=== PATIENT | female | born 1935 ===

== ENCOUNTER 2022-01-26 09:57 | Outpatient (REF) | payer OTHER, SELFPAY ==
--- NOTE | ~2022-01-26 | CT_ITS ---
EXAMINATION: CT HEAD WITHOUT CONTRAST CLINICAL INFORMATION: Dementia. Behavioral disturbance. COMPARISON: No relevant prior imaging. TECHNIQUE: Contiguous axial imaging was performed from the skull base to vertex without intravenous administration of contrast. This CT examination was performed using dose optimization techniques as appropriate, variously including the following: *Automated exposure control *Adjustment of mA and/or kV according to patient size (this includes techniques or standardized protocols for targeted exams where dose is matched to indication/reason for exam; i.e. extremities or head) *Use of iterative reconstruction technique DLP: 818 mGy-cm FINDINGS: There are numerous foci of hypoattenuation primarily involving the periventricular white matter and there is loss of parenchymal volume primarily within the temporal lobes. Deal-white matter differentiation is grossly preserved and there is no evidence of acute territorial infarct. There is no intracranial mass effect or midline shift. No abnormal extra axial collection. Lateral and third ventricles are prominent. There is relative effacement of the sulcal spaces particularly near the vertex and there is narrowing of the callosal angle, best visualized on coronal image 241 of 402 series 7. The calvarium and skull base are intact. Mastoid air cells and middle ear cavities are well aerated. No active paranasal sinus disease. CT/CT head/brain wo con IMPRESSION: There is loss of parenchymal volume vertebral artery within the anterior temporal lobes. There is chronic small vessel ischemic changes are also visualized primarily involving the periventricular white matter and there are anatomic features that suggest the possibility of normal pressure hydrocephalus. Grossly no evidence of acute territorial infarct or hemorrhage.
== END 2022-01-26 09:58 | disposition home or self-care (01) ==
LOC: HO.CT 09:57
PROVIDERS: Visit Provider Psychiatry & Neurology Neurology
DX: F03.90 Unspecified dementia, unspecified severity, without behavioral disturbance, psychotic disturbance, mood disturbance, and anxiety (principal)
CPT/HCPCS: 70450

== ENCOUNTER → 2022-10-10 11:08 | Outpatient (BNVA) | payer MEDICARE, MEDICAID, SELFPAY | PROVIDERS: PCP Internal Medicine Hematology & Oncology; Visit Provider Psychiatry & Neurology Neurology | DX: F03.90 Unspecified dementia, unspecified severity, without behavioral disturbance, psychotic disturbance, mood disturbance, and anxiety (principal); F32.A Depression, unspecified; R29.6 Repeated falls | CPT/HCPCS: 99212 ==

== ENCOUNTER 2023-05-17 15:33 | Outpatient (AMB) | payer OTHER, SELFPAY ==
--- NOTE | 2023-05-17 15:44 | A.OFFVIS_ITS ---
Intake Vital Signs 05/17/23 15:51 Height 5 ft 1 in Weight 147 lb 2 oz BMI 27.8 BP 142/70 H Blood Pressure Location Lt brachial Position Sitting Respiration 17 Pulse 73 Pulse Source Pulse Oximeter Pulse Oximetry (%) 93 Oxygen Delivery Method Room Air Intake Visit Reasons: 6 mnts f/u appt-lvm Intake Note: Pt presents to the office for a 6 month follow up for Dementia. Pt is here with her son, Moy. He is her historian today. He reports concerns of her memory worsening, unsteady gait and oversleeping between 14-16 hours. This has been going on for several months. Allergies lisinopril Allergy (Intermediate, Verified 05/17/23 15:51) toung swelling chlorthalidone Adverse Reaction (Intermediate, Verified 05/17/23 15:51) Hives tramadol Adverse Reaction (Intermediate, Verified 05/17/23 15:51) cough HPI HPI Comments History of Present Illness Details 87 y/o female comes for follow up of razo. Pt is accompanied by her son. Pt's son reports that her hallucination and paranoid has been better quetiapine 25 mg BID. She sleeps better and her mood is stable. However, she is very forgetful, and can't remember she ate and keep eating snacks and gained wt. She gained 7 lb over the last 7 months. Pt is on donepezil 5 mg and memantine 10 mg BID. She needs assistance with most ADLs. she is walking now with a cane. [facility]LY [facility], [facility] Medical History Anemia Arthritis Cervical spinal stenosis COPD (chronic obstructive pulmonary disease) Depression GERD (gastroesophageal reflux disease) Hiatal hernia HTN (hypertension) Hyperlipidemia Insomnia Lumbar spinal stenosis Osteoporosis Urolithiasis Vitamin B 12 deficiency Surgical History H/O endoscopy H/O total hysterectomy History of appendectomy H/O lithotripsy H/O colonoscopy H/O cataract removal with insertion of prosthetic lens Family History Family/Other HTN (hypertension) Family/Other HTN (hypertension) Father No problems noted. Mother No problems noted. Social History Patient Tobacco Use Status: Former Tobacco user Review of Systems Const All systems reviewed & are unremarkable except as noted in HPI and below Physical Exam Vital Signs: Last Vital Signs Pulse 73 05/17/23 15:51 Resp 17 05/17/23 15:51 BP 142/70 H 05/17/23 15:51 Pulse Ox 93 05/17/23 15:51 Oxygen Delivery Method Room Air 05/17/23 15:51 BMI result Body Mass Index 27.8 Const Orientation/consciousness: oriented to person Eyes Pupils: Equal, round and reactive pupils present Neuro General: oriented to person Cranial nerves: Yes Equal, round and reactive pupils present, Yes Bilaterally i ntact EOM present, Yes Normal facial strength present and Yes Midline tongue present Gait exam (Neuro): Other gait observations present (with cane slow ) Motor exam (neuro): 5/5 motor strength present throughout and Normal motor muscle tone present throughout Coordination: [id number] test normal Assessment & Plan Assessment & Plan (1) Dementia: Code(s): F03.90 - Unspecified dementia, unspecified severity, without behavioral di sturbance, psychotic disturbance, mood disturbance, and anxiety (2) Depression: Code(s): F32.A - Depression, unspecified (3) Multiple falls: Code(s): R29.6 - Repeated falls Plan Continue citalopram 10mg, quetiapine 25 mg BID, memantine 10 mg BID and donepezil 5 mg qHS. Advised patient's son to patient engage more social and cognitive activities. Coding Level of Care Code Est Pt Level 3 (86670) Diagnoses Dementia F03.90 Depression F32.A Multiple falls R29.6
[2023-05-17 15:51] VITALS: BP 142/70; PULSE 73; RESP 17; O2SAT 93; BMI 27.8
== END 2023-05-17 16:16 | disposition home or self-care (01) ==
PROVIDERS: Visit Provider Nurse Practitioner Family
DX: F03.90 Unspecified dementia, unspecified severity, without behavioral disturbance, psychotic disturbance, mood disturbance, and anxiety (principal); F32.A Depression, unspecified; R29.6 Repeated falls
CPT/HCPCS: 99213

== ENCOUNTER → 2023-05-17 15:33 | Outpatient (BNVA) | payer OTHER, SELFPAY | PROVIDERS: Visit Provider Psychiatry & Neurology Neurology | DX: F03.90 Unspecified dementia, unspecified severity, without behavioral disturbance, psychotic disturbance, mood disturbance, and anxiety (principal); F32.A Depression, unspecified; R29.6 Repeated falls | CPT/HCPCS: 99212 ==

== ENCOUNTER 2023-08-28 09:06 | Outpatient (AMB) | payer OTHER, SELFPAY ==
--- NOTE | 2023-08-28 09:07 | A.OFFVIS_ITS ---
Intake Vital Signs 08/28/23 09:09 Height 5 ft 1 in BP 146/72 H Blood Pressure Location Lt brachial Position Sitting Respiration 17 Pulse 69 Pulse Source Pulse Oximeter Pulse Oximetry (%) 96 Oxygen Delivery Method Room Air Intake Visit Reasons: Pt was hospitalized /7 days for crisis outbur Intake Note: Pt presents to the office for hospital follow up. Spool Carrier Required: No Allergies lisinopril Allergy (Intermediate, Verified 08/28/23 09:08) toung swelling chlorthalidone Adverse Reaction (Intermediate, Verified 08/28/23 09:08) Hives tramadol Adverse Reaction (Intermediate, Verified 08/28/23 09:08) cough HPI HPI Comments History of Present Illness Details 87 y/o female comes for follow up of jami mack. Pt is accompanied by her son.ABout 1 month ago she became suicidal( screamed that she did not want to live) , was aggressive towards her daughter .SHe was admitted at [facility] - she was started trazadone 25mg qhs as needed, lexapro 10mg qd. she had psychiatric evaluation and was told it was related to dementia and panic attacks. Her hallucinations are worse . she started going to [facility] 2 times a week However, she is very forgetful, and can't remember she ate and keep eating snacks and gained wt. Pt is on donepezil 5 mg and memantine 10 mg BID. She needs assistance with all ADLs. she is walking now with a cane. [facility] Medical History (Updated 08/28/23 @ 09:28 by Jasmina Duran MD) Dementia, unspecified, with behavioral disturbance Hyperlipidemia Arthritis HTN (hypertension) Osteoporosis Lumbar spinal stenosis GERD (gastroesophageal reflux disease) COPD (chronic obstructive pulmonary disease) Hiatal hernia Urolithiasis Depression Cervical spinal stenosis Vitamin B 12 deficiency Insomnia Anemia Surgical History H/O endoscopy H/O total hysterectomy History of appendectomy H/O lithotripsy H/O colonoscopy H/O cataract removal with insertion of prosthetic lens Family History Family/Other HTN (hypertension) Family/Other HTN (hypertension) Father No problems noted. Mother No problems noted. Social History Patient Tobacco Use Status: Former Tobacco user Physical Exam Vital Signs: Last Vital Signs Pulse 69 08/28/23 09:09 Resp 17 08/28/23 09:09 BP 146/72 H 08/28/23 09:09 Pulse Ox 96 08/28/23 09:09 Oxygen Delivery Method Room Air 08/28/23 09:09 Const Orientation/consciousness: oriented to person Eyes Pupils: Equal, round and reactive pupils present Neuro General: oriented to person Cranial nerves: Yes Equal, round and reactive pupils present, Yes Bilaterally intact EOM present, Yes Normal facial strength present and Yes Midline tongue present Gait exam (Neuro): Other gait observations present (with cane slow ) Motor exam (neuro): 5/5 motor strength present throughout and Normal motor muscle tone present throughout Coordination: [id number] test normal Assessment & Plan Assessment & Plan (1) Dementia, unspecified, with behavioral disturbance: Code(s): F03.918 - Unspecified dementia, unspecified severity, with other behavioral disturbance (2) Depression: Code(s): F32.A - Depression, unspecified (3) Multiple falls: Code(s): R29.6 - Repeated falls Plan Continue escitalopram 10mg, quetiapine 25 mg qhs and 1/2 as needed , memantine 10 mg BID and donepezil 5 mg qHS. Advised patient's son to patient engage more social and cognitive activities. she NEEDS 24 hr care or to be placed in custodial facility due to her dementia associated with behavior and psychotic features. Lorazepam 0.5mg bid as needed for agitation. Medications: New lorazepam 0.5 mg PO BID PRN 60 tabs 0RF anxiety Changed From quetiapine 25 mg PO BID 30 days 60 tabs 3RF agitation To quetiapine 1 tab qhs and 1/2 as needed bid orally 2 times a day; 30 days 60 tabs 3RF agitation Coding Level of Care Code Est Pt Level 4 (85711) Diagnoses Dementia, unspecified, with behavioral disturbance F03.918 Depression F32.A Multiple falls R29.6
[2023-08-28 09:09] VITALS: BP 146/72; PULSE 69; RESP 17; O2SAT 96
== END 2023-08-28 09:38 | disposition home or self-care (01) ==
PROVIDERS: PCP Internal Medicine Hematology & Oncology; Visit Provider Psychiatry & Neurology Neurology
DX: F03.918 Unspecified dementia, unspecified severity, with other behavioral disturbance (principal); F32.A Depression, unspecified; R29.6 Repeated falls
CPT/HCPCS: 99214

== ENCOUNTER → 2023-08-28 09:06 | Outpatient (BNVA) | payer OTHER, SELFPAY | PROVIDERS: PCP Internal Medicine Hematology & Oncology; Visit Provider Psychiatry & Neurology Neurology | DX: F03.918 Unspecified dementia, unspecified severity, with other behavioral disturbance (principal); F32.A Depression, unspecified; R29.6 Repeated falls; Z79.899 Other long term (current) drug therapy | CPT/HCPCS: 99212 ==

== ENCOUNTER 2024-01-30 12:26 | Outpatient (AMB) | payer OTHER, SELFPAY ==
[2024-01-30 12:29] VITALS: BP 120/68; PULSE 68; RESP 16; O2SAT 98; BMI 26.5
--- NOTE | 2024-01-30 12:29 | A.OFFVIS_ITS ---
Vital Signs 01/30/24 12:29 Height 5 ft 1 in Weight 140 lb 6 oz BMI 26.5 BP 120/68 Blood Pressure Location Rt brachial Position Sitting Respiration 16 Pulse 68 Pulse Source Pulse Oximeter Pulse Oximetry (%) 98 Oxygen Delivery Method Room Air Intake Visit Reasons: 6 mo f/u Memory impairment - LVM w/add Intake Note: Pt presents tot he office for a 5 month follow up for dementia. Habilitation Worker Required: No Allergies lisinopril Allergy (Intermediate, Verified 01/30/24 12:29) toung swelling chlorthalidone Adverse Reaction (Intermediate, Verified 01/30/24 12:29) Hives tramadol Adverse Reaction (Intermediate, Verified 01/30/24 12:29) cough Medication List - Last Reconciled 01/30/24 by Jasmina Duran MD acetaminophen ER (Tylenol 8 Hour) 650 mg PO Q12H donepezil 5 mg PO BEDTIME escitalopram oxalate 10 mg PO DAILY 30 days furosemide 20 mg PO DAILY lorazepam 0.5 mg PO BID PRN mecobalamin (vitamin B12) 1,000 mcg PO DAILY memantine 10 mg PO BID 30 days multivitamin (Daily Multi-Vitamin tablet) 1 tab PO DAILY quetiapine 1 tab qhs and 1/2 as needed bid orally 2 times a day; 30 days trazodone 25 mg PO BEDTIME PRN HPI Comments Details: 88 y/o female comes for follow up of dementia. Pt is accompanied by her son.she has been the same since last visit. she had 1 episode of agitation but resolved itself. Her hallucinations are same . she has delusions- still thinks her is alive she refused to go to senior center and is very sleepy during the daytime. However, she is very forgetful, and can't remember she ate and keep eating snacks and gained wt. Pt is on donepezil 5 mg and memantine 10 mg BID. She needs assistance with all ADLs. she is walking now with a cane. [facility] Medical History Dementia, unspecified, with behavioral disturbance Hyperlipidemia Arthritis HTN (hypertension) Osteoporosis Lumbar spinal stenosis GERD (gastroesophageal reflux disease) COPD (chronic obstructive pulmonary disease) Hiatal hernia Urolithiasis Depression Cervical spinal stenosis Vitamin B 12 deficiency Insomnia Anemia Surgical History H/O endoscopy H/O total hysterectomy History of appendectomy H/O lithotripsy H/O colonoscopy H/O cataract removal with insertion of prosthetic lens Family History Family/Other HTN (hypertension) Family/Other HTN (hypertension) Father No problems noted. Mother No problems noted. Social History Patient Tobacco Use Status: Former Tobacco user Physical Exam Vital Signs: Last Vital Signs Pulse 68 01/30/24 12:29 Resp 16 01/30/24 12:29 BP 120/68 01/30/24 12:29 Pulse Ox 98 01/30/24 12:29 Oxygen Delivery Method Room Air 01/30/24 12:29 BMI result Body Mass Index 26.5 Const Orientation/consciousness: oriented to person Eyes Pupils: Equal, round and reactive pupils present Neuro General: oriented to person Cranial nerves: Yes Equal, round and reactive pupils present, Yes Bilaterally intact EOM present, Yes Normal facial strength present and Yes Midline tongue present Gait exam (Neuro): Other gait observations present (with cane slow ) Motor exam (neuro): 5/5 motor strength present throughout and Normal motor muscle tone present throughout Coordination: [id number] test normal Assessment & Plan Assessment & Plan (1) Dementia, unspecified, with behavioral disturbance: Code(s): F03.918 - Unspecified dementia, unspecified severity, with other behavioral disturbance Category: Medical (2) Depression: Code(s): F32.A - Depression, unspecified Category: Medical (3) Multiple falls: Code(s): R29.6 - Repeated falls Category: Medical Plan Continue escitalopram 10mg, quetiapine 25 mg qhs and 1/2 as needed , memantine 10 mg BID and donepezil 5 mg qHS. Advised patient's son to patient engage more social and cognitive activities. she NEEDS 24 hr care or to be placed in fdc facility due to her dementia associated with behavior and psychotic features. Lorazepam 0.5mg bid as needed for agitation. Coding Level of Care Code Est Pt Level 4 (98482) Diagnoses Dementia, unspecified, with behavioral disturbance F03.918 Depression F32.A Multiple falls R29.6
== END 2024-01-30 13:05 | disposition home or self-care (01) ==
PROVIDERS: PCP Internal Medicine Hematology & Oncology; Visit Provider Psychiatry & Neurology Neurology
DX: F03.918 Unspecified dementia, unspecified severity, with other behavioral disturbance (principal); F32.A Depression, unspecified; R29.6 Repeated falls
CPT/HCPCS: 99214

== ENCOUNTER → 2024-01-30 12:26 | Outpatient (BNVA) | payer OTHER, SELFPAY | PROVIDERS: PCP Internal Medicine Hematology & Oncology; Visit Provider Psychiatry & Neurology Neurology | DX: F03.918 Unspecified dementia, unspecified severity, with other behavioral disturbance (principal); R29.6 Repeated falls; F32.A Depression, unspecified | CPT/HCPCS: 99212 ==

== ENCOUNTER 2024-08-05 13:55 | Outpatient (AMB) | payer OTHER, SELFPAY ==
--- NOTE | 2024-08-05 13:58 | A.OFFVIS_ITS ---
Vital Signs 08/05/24 13:59 Height 5 ft 1 in Weight 135 lb BMI 25.5 BP 130/72 Blood Pressure Location Rt brachial Position Sitting Pulse 78 Pulse Source Pulse Oximeter Pulse Oximetry (%) 98 Oxygen Delivery Method Room Air Intake Visit Reasons: 6 mo f/u Memory impairment Intake Note: Patient presents for memory impairment Allergies lisinopril Allergy (Intermediate, Verified 08/05/24 14:03) toung swelling chlorthalidone Adverse Reaction (Intermediate, Verified 08/05/24 14:03) Hives tramadol Adverse Reaction (Intermediate, Verified 08/05/24 14:03) cough Medication List - Last Reconciled 08/05/24 by Jasmina Duran MD acetaminophen ER (Tylenol 8 Hour) 650 mg PO Q12H albuterol sulfate 90 mcg/actuation 1 inh inhalation QID cholecalciferol (vitamin D3) 125 mcg PO DAILY donepezil 5 mg PO BEDTIME escitalopram oxalate 10 mg PO DAILY 30 days famotidine 20 mg PO DAILY ferrous gluconate 240 mg PO DAILY fluticasone furoate 50 mcg/actuation inhalation fluticasone propionate 50 mcg/actuation (Allergy Relief (fluticasone)) 1 spray intranasal Q12H furosemide 20 mg PO DAILY lorazepam 1 tab bid as needed losartan 25 mg PO DAILY mecobalamin (vitamin B12) 1,000 mcg PO DAILY memantine 10 mg PO BID 30 days multivitamin (Daily Multi-Vitamin tablet) 1 tab PO DAILY quetiapine 1 tab qhs and 1/2 as needed bid orally 2 times a day; 30 days trazodone 25 mg PO BEDTIME PRN HPI Comments Details: 88 y/o female comes for follow up of dementia. Pt is accompanied by her son.she has been the same since last visit. Her behavior has been stable . Her hallucinations are rare. Delusions- still thinks her is living she refused to go to senior center and is very sleepy during the daytime. However, she is very forgetful, and can't remember she ate and keep eating snacks and gained wt. Pt is on donepezil 5 mg and memantine 10 mg BID. She needs assistance with all ADLs. she is walking now with a cane. [facility] Medical History Dementia, unspecified, with behavioral disturbance Hyperlipidemia Arthritis HTN (hypertension) Osteoporosis Lumbar spinal stenosis GERD (gastroesophageal reflux disease) COPD (chronic obstructive pulmonary disease) Hiatal hernia Urolithiasis Depression Cervical spinal stenosis Vitamin B 12 deficiency Insomnia Anemia Surgical History H/O endoscopy H/O total hysterectomy History of appendectomy H/O lithotripsy H/O colonoscopy H/O cataract removal with insertion of prosthetic lens Family History Family/Other HTN (hypertension) Family/Other HTN (hypertension) Father No problems noted. Mother No problems noted. Social History Patient Tobacco Use Status: Former Tobacco user Physical Exam Vital Signs: Last Vital Signs Pulse 78 08/05/24 13:59 BP 130/72 08/05/24 13:59 Pulse Ox 98 08/05/24 13:59 Oxygen Delivery Method Room Air 08/05/24 13:59 BMI result Body Mass Index 25.5 Const Orientation/consciousness: oriented to person Eyes Pupils: Equal, round and reactive pupils present Neuro General: oriented to person Cranial nerves: Yes Equal, round and reactive pupils present, Yes Bilaterally intact EOM present, Yes Normal facial strength present and Yes Midline tongue present Gait exam (Neuro): Other gait observations present (with cane slow ) Motor exam (neuro): 5/5 motor strength present throughout and Normal motor muscle tone present throughout Coordination: [id number] test normal Assessment & Plan Assessment & Plan (1) Dementia, unspecified, with behavioral disturbance: Code(s): F03.918 - Unspecified dementia, unspecified severity, with other behavioral disturbance Category: Medical (2) Depression: Code(s): F32.A - Depression, unspecified Category: Medical Qualifiers: Depression Type: unspecified Qualified Code(s): F32.A - Depression, unspecified (3) Multiple falls: Comment: no recent falls Code(s): R29.6 - Repeated falls Category: Medical Plan Continue escitalopram 10mg, quetiapine 25 mg qhs and 1/2 as needed , memantine 10 mg BID and donepezil 5 mg qHS. Advised patient's son to patient engage more social and cognitive activities. she NEEDS 24 hr care or to be placed in senior living facility due to her dementia associated with behavior and psychotic features. Lorazepam 0.5mg bid as needed for agitation. Coding Level of Care Code Est Pt Level 4 (09455) Diagnoses Dementia, unspecified, with behavioral disturbance F03.918 Depression, unspecified depression type F32.A Depression Type: unspecified Multiple falls R29.6
[2024-08-05 13:59] VITALS: BP 130/72; PULSE 78; O2SAT 98; BMI 25.5
== END 2024-08-05 14:19 | disposition home or self-care (01) ==
PROVIDERS: PCP Internal Medicine Hematology & Oncology; Visit Provider Psychiatry & Neurology Neurology
DX: F03.918 Unspecified dementia, unspecified severity, with other behavioral disturbance (principal); F32.A Depression, unspecified; R29.6 Repeated falls
CPT/HCPCS: 99214

== ENCOUNTER → 2024-08-05 13:55 | Outpatient (BNVA) | payer OTHER, SELFPAY | PROVIDERS: PCP Internal Medicine Hematology & Oncology; Visit Provider Psychiatry & Neurology Neurology | DX: F03.918 Unspecified dementia, unspecified severity, with other behavioral disturbance (principal); F32.A Depression, unspecified; R29.6 Repeated falls | CPT/HCPCS: 99212 ==